=== PATIENT | male | born 1970 | race Caucasian/White ===

== ENCOUNTER 2018-02-08 15:35 | Observation (INO) | payer OTHER ==
[~2018-02-08] VITALS: Ht 172.7 cm; Wt 86.2 kg
--- NOTE | ~2018-02-08 | EC ---
PATIENT:BRIANDA MORILLO DATE OF SERVICE: 02/08/18 SEX: M MEDICAL RECORD: [id number] DATE OF : 74 LOCATION:D.M2 D.212 AGE OF PATIENT: 47 ADMISSION DATE: 02/08/18 REFERRING PHYSICIAN: INTERPRETING PHYSICIAN: KEL RODRIGUEZ MD ECHOCARDIOGRAM REPORT ECHO CHARGES 4 ECHO COMPLETE Date: 02/09 CLINICAL DIAGNOSIS: ELEVATED TROPONIN ECHOCARDIOGRAPHIC MEASUREMENTS (adult normal given) AC root (d.<3.7cm) 2.8 cm LV Septum d (<1.2 cm> 1.4 cm Valve Excursion 1.6 cm LV Septum (systole) 1.4 cm Left Atria (s.<4.0cm> 4.0 cm LVPW d(<1.2cm) 0.9 cm RV (d.<2.3cm) 3.9 cm LVPW (sytole) 1.4 cm LV diastole(<5.6CM) 4.6 cm MV E-F(>70mm/sec) cm LV systole 3.5 cm LVOT Diameter 2.3 cm MV exc.(>10mm) cm Est.ejection fraction (50-75%) % DOPPLER: LVIT cm/sec A 76.0 cm/sec E 83.0 cm/sec LA cm/sec RVSP 23 mmHg LVOT 100 cm/sec AOP1/2T m/s Asc. Ao 124 cm/sec RVOT 55 cm/sec RA cm/sec PA 79 cm/sec AV Gradient Peak 6.16 mmHg AV Mean 3.17 mmHg AV Area 3.2 cm MV Gradient Peak 3.49 mmHg MV Mean 1.06 mmHg MV Area cm COMMENTS: CARIDAC WEIGHER AND CRUSHER : CHRISTIANO Alarcon Rose Grower: [employer] Instructor: Leola Rodriguez TAPE# PACS Pericardial Effusion N DATE OF SERVICE: PROCEDURE: Transthoracic echocardiogram. FINDINGS: 1. Left ventricle has mild left ventricular hypertrophy, ejection fraction 60% to 65%. There is no regional wall motion abnormalities. 2. The left atrium is normal. 3. The aortic valve is normal. 4. The mitral valve is normal. ECHOCARDIOGRAM REPORT [id number] BRIANDA MORILLO 5. The tricuspid valve is normal. 6. The pericardium is normal. The patient is mildly bradycardic. The right ventricle has mild dilatation, but normal function. 7. The right atrium has mild dilatation, normal function. 8. Pulmonic valve is normal. CONCLUSIONS: The patient has a normal echocardiogram for patient's stated age. There is mild dilatation of right-sided structure that does not appear associated with increased right-sided pressures. TRANSINT:[id number] Voice Confirmation ID: [id number] DOCUMENT ID: [id number] KEL RODRIGUEZ MD at 0956 CC: [id number] DICTATION DATE: 02/10/18908 COMMISSION SPECIALIST: 02/10/18 1125 DIS IN 02/11/18 [facility] [address] [place] [address]
[2018-02-08] MEDS ORDERED: LEXAPRO10 MG PO (15:47)
[2018-02-08] MEDS ORDERED: VALTREX500 MG PO (15:47)
[2018-02-08] MEDS ORDERED: GLUCOPHAGE1000 MG PO (15:47)
[2018-02-08] MEDS ORDERED: BAYER CHEWABLE81 MG PO (15:48)
[2018-02-08] MEDS ORDERED: DIOVAN40 MG PO (15:53)
[2018-02-08 16:15] VITALS: BP 98/55
[2018-02-08 17:19] LABS: BASOPHILS 0.3 % (0-2); EOSINOPHILS 6.3 % (0-7); HEMATOCRIT 38.2 % (42.0-54.0); HEMOGLOBIN 12.7 g/dL (13.5-17.5); IMMATURE GRANULOCYTES 0.2 % (0-5); LYMPHOCYTES 16.1 % (15-50); MCH 29.6 pg (26.0-34.0); MCHC 33.2 g/dL (31.0-37.0); MEAN PLATELET VOLUME 12.8 fL (7.4-10.4); NEUTROPHILS 71.1 % (40-80); RBC 4.29 10x6/uL (4.20-6.10); RDW 13.4 % (11.5-14.5)
[2018-02-08 17:34] LABS: PLATELET COUNT 112 10x3/uL (130-400)
[2018-02-08 17:35] VITALS: BP 109/72
[2018-02-08 17:38] LABS: APPEARANCE CLEAR (CLEAR); BILIRUBIN NEGATIVE (NEGATIVE); COLOR YELLOW (YELLOW); GLUCOSE NEGATIVE (NEGATIVE); KETONE NEGATIVE (NEGATIVE); NITRITE NEGATIVE (NEGATIVE); PROTEIN NEGATIVE (NEGATIVE); UROBILINOGEN NORMAL (NORMAL)
[2018-02-08 17:54] LABS: UDS - AMPHET NEGATIVE QUAL (NEGATIVE); UDS - BARB NEGATIVE QUAL (NEGATIVE); UDS - BENZO NEGATIVE QUAL (NEGATIVE); UDS - COCAINE NEGATIVE QUAL (NEGATIVE); UDS - OPIATE NEGATIVE QUAL (NEGATIVE); UDS - PCP NEGATIVE QUAL (NEGATIVE); UDS - THC NEGATIVE QUAL (NEGATIVE)
[2018-02-08 17:54] LABS: ALBUMIN 3.8 g/dL (3.4-5.0); ALKALINE PHOSPHATASE 82 U/L (46-116); ALT (SGPT) 42 U/L (10-68); BILIRUBIN - TOTAL 0.43 mg/dL (0.2-1.3); CALC OSMOLALITY 285 mosm/kg (275-300); CALCIUM 8.9 mg/dL (8.5-10.1); CARBON DIOXIDE 26.8 mmol/L (21.0-32.0); CHLORIDE - SERUM 107 mmol/L (98-107); GLUCOSE 140 mg/dL (74-106); POTASSIUM - SERUM 4.5 mmol/L (3.5-5.1); SODIUM 142 mmol/L (136-145); UREA NITROGEN 16 mg/dL (7-18); eGFR NON AFRICAN AMERICAN 86 mL/min (90-120)
[2018-02-08 18:13] LABS: LIPASE 261 U/L (73-393); PRO BNP 22 pg/mL (0-125)
[2018-02-08 18:18] LABS: TROPONIN-I 0.708 ng/mL (0.000-0.060)
[2018-02-08 18:35] VITALS: BP 106/70
[2018-02-08 19:25] VITALS: BP 110/75
[2018-02-08] MEDS ORDERED: PREVACID30 MG PO (21:19)
[2018-02-08 21:38] LABS: CKMB 0.8 U/L (0.0-3.6); CREATINE KINASE 67 UL (21-232)
[2018-02-08 21:52] LABS: TROPONIN-I 0.674 ng/mL (0.000-0.060)
[2018-02-09 00:02] VITALS: BP 117/75
[2018-02-09 03:23] LABS: BASOPHILS 0.2 % (0-2); EOSINOPHILS 9.1 % (0-7); HEMATOCRIT 35.1 % (42.0-54.0); HEMOGLOBIN 11.5 g/dL (13.5-17.5); LYMPHOCYTES 29.3 % (15-50); MCH 29.3 pg (26.0-34.0); MCHC 32.8 g/dL (31.0-37.0); MCV 89.3 fL (80.0-100.0); MEAN PLATELET VOLUME 11.6 fL (7.4-10.4); MONOCYTES 6.9 % (2-11); NEUTROPHILS 54.5 % (40-80); PLATELET COUNT 111 10x3/uL (130-400); RBC 3.93 10x6/uL (4.20-6.10); RDW 13.5 % (11.5-14.5); WBC 5.5 10x3/uL (4.8-10.8)
[2018-02-09 03:47] VITALS: BP 110/75
[2018-02-09 03:53] LABS: ALBUMIN 3.4 g/dL (3.4-5.0); ALKALINE PHOSPHATASE 73 U/L (46-116); ALT (SGPT) 35 U/L (10-68); BILIRUBIN - TOTAL 0.35 mg/dL (0.2-1.3); CALC OSMOLALITY 285 mosm/kg (275-300); CALCIUM 8.4 mg/dL (8.5-10.1); CARBON DIOXIDE 31.1 mmol/L (21.0-32.0); CHLORIDE - SERUM 106 mmol/L (98-107); CKMB 0.9 U/L (0.0-3.6); CREATINE KINASE 56 UL (21-232); GLUCOSE 135 mg/dL (74-106); POTASSIUM - SERUM 3.9 mmol/L (3.5-5.1); PROTEIN - SERUM 6.5 g/dL (6.4-8.2); SODIUM 142 mmol/L (136-145); UREA NITROGEN 15 mg/dL (7-18); eGFR NON AFRICAN AMERICAN 86 mL/min (90-120)
[2018-02-09 03:58] LABS: TROPONIN-I 0.757 ng/mL (0.000-0.060)
[2018-02-09 06:07] VITALS: BP 110/63
[2018-02-09 09:36] LABS: % SATURATION 16 % (15-55); IRON 62 ug/dl (35-150); TOTAL IRON BIND CAPACITY 384 ug/dl (260-445); UNSAT IRON BIND CAPACITY 322 ug/dl (150-375)
[2018-02-09 10:10] LABS: CKMB 0.9 U/L (0.0-3.6); CREATINE KINASE 66 UL (21-232); FERRITIN 11 ng/mL (3-244)
[2018-02-09 10:11] LABS: TROPONIN-I 0.869 ng/mL (0.000-0.060)
[2018-02-09 11:23] VITALS: BP 122/76
[2018-02-09 12:41] VITALS: BMI 29.6
[2018-02-09 13:17] VITALS: Ht 172.7 cm; Wt 86.2 kg
[2018-02-09 13:44] LABS: CKMB 0.6 U/L (0.0-3.6); CREATINE KINASE 64 UL (21-232)
[2018-02-09 13:45] LABS: TROPONIN-I 0.845 ng/mL (0.000-0.060)
[2018-02-09 15:09] VITALS: BP 116/69
[2018-02-09 19:04] LABS: CKMB 0.6 U/L (0.0-3.6); CREATINE KINASE 53 UL (21-232)
[2018-02-09 19:23] LABS: TROPONIN-I 0.729 ng/mL (0.000-0.060)
[2018-02-09 20:52] VITALS: BP 109/68
[2018-02-10 01:42] VITALS: BP 118/63
[2018-02-10 01:48] LABS: CKMB 0.6 U/L (0.0-3.6); CREATINE KINASE 55 UL (21-232)
[2018-02-10 01:50] LABS: TROPONIN-I 0.928 ng/mL (0.000-0.060)
[2018-02-10 05:49] LABS: BASOPHILS 0.2 % (0-2); EOSINOPHILS 11.4 % (0-7); HEMATOCRIT 38.2 % (42.0-54.0); HEMOGLOBIN 12.6 g/dL (13.5-17.5); IMMATURE GRANULOCYTES 0.2 % (0-5); LYMPHOCYTES 38.2 % (15-50); MCH 29.4 pg (26.0-34.0); MCV 89.3 fL (80.0-100.0); MEAN PLATELET VOLUME 12.4 fL (7.4-10.4); MONOCYTES 5.7 % (2-11); NEUTROPHILS 44.3 % (40-80); PLATELET COUNT 123 10x3/uL (130-400); RBC 4.28 10x6/uL (4.20-6.10); RDW 13.6 % (11.5-14.5); WBC 4.6 10x3/uL (4.8-10.8)
[2018-02-10 06:09] LABS: ALBUMIN 3.6 g/dL (3.4-5.0); ALKALINE PHOSPHATASE 79 U/L (46-116); ALT (SGPT) 38 U/L (10-68); BILIRUBIN - TOTAL 0.25 mg/dL (0.2-1.3); CALC OSMOLALITY 284 mosm/kg (275-300); CALCIUM 9.1 mg/dL (8.5-10.1); CARBON DIOXIDE 30.5 mmol/L (21.0-32.0); CHLORIDE - SERUM 104 mmol/L (98-107); GLUCOSE 135 mg/dL (74-106); POTASSIUM - SERUM 3.7 mmol/L (3.5-5.1); PROTEIN - SERUM 7.1 g/dL (6.4-8.2); SODIUM 142 mmol/L (136-145); UREA NITROGEN 13 mg/dL (7-18); eGFR NON AFRICAN AMERICAN 86 mL/min (90-120)
[2018-02-10 06:13] VITALS: BP 118/71
[2018-02-10 08:17] VITALS: BP 120/78
[2018-02-10 10:58] VITALS: BP 128/80
[2018-02-10 13:19] LABS: HEPATITIS C ANTIBODY <0.1 (0.0-0.9)
[2018-02-10 16:12] VITALS: BP 131/74
[2018-02-10 20:25] VITALS: BP 122/78
[2018-02-11 01:16] VITALS: BP 130/89
[2018-02-11 04:30] VITALS: BP 121/71
[2018-02-11 06:32] LABS: BASOPHILS 0.6 % (0-2); HEMATOCRIT 37.6 % (42.0-54.0); HEMOGLOBIN 12.6 g/dL (13.5-17.5); IMMATURE GRANULOCYTES 0.2 % (0-5); LYMPHOCYTES 40.2 % (15-50); MCH 29.9 pg (26.0-34.0); MCHC 33.5 g/dL (31.0-37.0); MCV 89.1 fL (80.0-100.0); MEAN PLATELET VOLUME 12.3 fL (7.4-10.4); MONOCYTES 6.9 % (2-11); NEUTROPHILS 42.1 % (40-80); PLATELET COUNT 126 10x3/uL (130-400); RBC 4.22 10x6/uL (4.20-6.10); RDW 13.4 % (11.5-14.5); WBC 5.1 10x3/uL (4.8-10.8)
[2018-02-11 07:25] LABS: ALBUMIN 3.7 g/dL (3.4-5.0); ALKALINE PHOSPHATASE 83 U/L (46-116); ALT (SGPT) 44 U/L (10-68); BILIRUBIN - TOTAL 0.27 mg/dL (0.2-1.3); CALC OSMOLALITY 281 mosm/kg (275-300); CALCIUM 9.2 mg/dL (8.5-10.1); CARBON DIOXIDE 27.4 mmol/L (21.0-32.0); CHLORIDE - SERUM 104 mmol/L (98-107); CREATININE - SERUM 1.1 mg/dL (0.6-1.3); GLUCOSE 129 mg/dL (74-106); POTASSIUM - SERUM 3.9 mmol/L (3.5-5.1); PROTEIN - SERUM 7.2 g/dL (6.4-8.2); SODIUM 140 mmol/L (136-145); UREA NITROGEN 16 mg/dL (7-18); eGFR NON AFRICAN AMERICAN 77 mL/min (90-120)
[2018-02-11 07:29] LABS: TROPONIN-I 0.731 ng/mL (0.000-0.060)
[2018-02-11 08:01] VITALS: BP 126/79
[2018-02-11 11:21] VITALS: BP 132/69
== END 2018-02-11 14:17 | disposition home or self-care (01) ==
LOC: D.ER 15:35 → D.EDHOLD 19:07 → OBSVTIME 19:07 → D.M2 19:07 → D.EDHOLD 19:07 → D.M2 19:53
PROVIDERS: Family Medicine; Internal Medicine Hematology & Oncology
DX: R55 Syncope and collapse (principal); R79.89 Other specified abnormal findings of blood chemistry; D69.6 Thrombocytopenia, unspecified; E11.65 Type 2 diabetes mellitus with hyperglycemia; I10 Essential (primary) hypertension; E78.5 Hyperlipidemia, unspecified